=== PATIENT | female | born 1955 | race Caucasian/White ===

== ENCOUNTER 2019-03-25 07:29 | Emergency (ER) | payer BC ==
--- NOTE | 2019-03-25 08:03 | EDM.PDOC ---
ED HPI GENERAL MEDICAL PROBLEM - General Chief Complaint: Upper Extremity Injury/Pain Stated Complaint: SORE FINGER Time Seen by Provider: 03/25/19 07:59 Source of Information: Reports: Patient, RN Notes Reviewed History Limitations: Reports: No Limitations - History of Present Illness INITIAL COMMENTS - FREE TEXT/NARRATIVE: 63-year-old female presents emergency department a complaint of pain in digit # 3 on the right hand she injured herself while working in the kitchen unclear mechanism of action. She has difficulty extending digit #3 she can close her hand with good alignment Right Hand Pain Score (Numeric/FACES): 4 - Related Data Allergies Allergy/AdvReac Type Severity Reaction Status Date / Time droperidol [From Inapsine] AdvReac Tachycardia Verified 03/25/19 07:48 Home Meds: Home Meds Aspirin [Adult Low Dose Aspirin EC] 1 tab PO DAILY 07/30/18 [History] Calcium Carb/Magnesium Oxid/D3 [Calcium Magnesium + D] 1 cap PO DAILY 07/30/18 [ History] Flaxseed Oil [Flaxseed] 1 cap PO DAILY 07/30/18 [History] Sweetwater-3/DHA/Epa/Fish Oil [Sweetwater 3 500 Softgel] 1,000 mg PO DAILY 07/30/18 [ History] atorvaSTATin [Lipitor] 1 tab PO DAILY 07/30/18 [History] Melatonin 10 mg PO BEDTIME 07/31/18 [History] Past Medical History Cardiovascular History: Reports: High Cholesterol Respiratory History: Reports: Other (See Below) Other Respiratory History: mild obstructive 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: - Infectious Disease History Infectious Disease History: Reports: Chicken Pox, Measles - Past Surgical History GI Surgical History: Reports: Appendectomy Female Surgical History: Reports: Cystoscopy Social & Family History - Tobacco Use Smoking Status *Q: Never Smoker - Caffeine Use Caffeine Use: Reports: Coffee - Recreational Drug Use Recreational Drug Use: No Review of Systems - Review of Systems Review Of Systems: See Below Musculoskeletal: Reports: Other (Finger pain) Neurological: Reports: No Symptoms ED EXAM, GENERAL - Physical Exam Exam: See Below Free Text/Narrative:: Examination of the right hand radial pulses +2 she has full range of motion digits 1-4 and 5 digit #3 is limited she cannot fully extend from the PIP joint but she can close her hand without misalignment of the digits sensation is intact Exam Limited By: No Limitations General Appearance: Alert, WD/WN, No Apparent Distress ED TRAUMA EXTREMITY PROCEDURES - Splinting Right 3rd Digit Splint Site: digit 3 Pre-Procedure NV Status: Normal Post-Procedure NV Status: Normal Splint Material: Aluminum-Foam Splint Design: Other Applied & Form Fitted By: Provider Provider Post-Splint Application NV Check: NV Status Normal, Good Position Complications: No Course - Vital Signs Last Recorded V/S: Last Vital Signs Temp 95.9 F L 03/25/19 07:42 Pulse 75 03/25/19 07:42 Resp 13 03/25/19 07:42 BP 138/84 03/25/19 07:42 Pulse Ox 95 03/25/19 07:42 - Orders/Labs/Meds Orders: Active Orders 24 hr Category Date Time Status Fingers Third Digit Rt F7 [CR] Stat Exams 03/25/19 08:01 Taken Departure - Departure Time of Disposition: 08:38 Disposition: Home, Self-Care 01 Condition: Fair 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 Ruiz Sepsis Event Note - Evaluation Sepsis Screening Result: No Definite Risk - Focused Exam Vital Signs: Vital Signs Temp Pulse Resp BP Pulse Ox 03/25/19 07:42 95.9 F L 75 13 138/84 95 03/25/19 07:41 95.9 F L 75 13 138/84 95 Date Exam was Performed: 03/25/19 Time Exam was Performed: 08:37 - My Orders Last 24 Hours: My Active Orders 03/25/19 08:01 Fingers Third Digit Rt F7 [CR] Stat - Assessment/Plan Last 24 Hours: My Active Orders 03/25/19 08:01 Fingers Third Digit Rt F7 [CR] Stat Plan: Assessment Acuity = acute Site and laterality = boutonniere deformity digit #3 right hand Etiology = secondary to trauma Manifestations = inability to fully extend digit #3 Location of injury = Home Lab values = x-ray finger, I did review films myself I cannot appreciate any acute process, the official read from radiology is pending Plan Films are sent to [facility] I did discuss case with Dr. Ruiz orthopedic hand surgeon at [phone] he recommended splinting to protect that PIP joint follow- up in hand clinic next week This note was dictated using [employer] voice recognition software please call with any questions on syntax or grammar.
--- NOTE | 2019-03-25 09:25 | CR ---
Fingers Third Digit Rt F7 CLINICAL HISTORY: Boutonniere deformity FINDINGS: No fracture or dislocation is identified. There is some minimal dorsiflexion at the third DIP joint IMPRESSION: No fracture Slight dorsiflexion at DIP joint may represent some instability. Clinical correlation is necessary
== END 2019-03-25 08:53 | disposition home or self-care (01) ==
LOC: JP.ED 07:29
DX: M20.021 Boutonniere deformity of right finger(s) (principal); E78.00 Pure hypercholesterolemia, unspecified; Z88.8 Allergy status to other drugs, medicaments and biological substances; Z79.899 Other long term (current) drug therapy; Z79.82 Long term (current) use of aspirin
CPT/HCPCS: 73140-26-F7; 73140-F7; 99283-25

== ENCOUNTER 2022-08-16 15:11 | Emergency (ER) | payer BC ==
[2022-08-16] MEDS ORDERED: Sodium Chloride 0.9% 10 ML Syringe FLUSH PRN (15:58)
[2022-08-16 16:04] LABS: BASOPHILS ABSOLUTE AUTO 0.03 K/uL (0.00-0.10); BASOPHILS PERCENT AUTO 0.4 % (0.1-1.3); EOSINOPHILS ABSOLUTE AUTO 0.09 K/uL (0.00-0.40); EOSINOPHILS PERCENT AUTO 1.1 % (0.0-5.4); HEMATOCRIT 41.5 % (34.3-46.0); HEMOGLOBIN 14.2 g/dL (11.2-15.5); IMMATURE GRAN ABSOLUTE AUTO 0.03 K/uL (0.00-0.23); IMMATURE GRAN PERCENT AUTO 0.4 % (0.0-0.7); LYMPHOCYTES ABSOLUTE AUTO 2.29 K/uL (0.8-3.3); LYMPHOCYTES PERCENT AUTO 28.9 % (11.4-47.7); MEAN CORPUSCULAR HEMOGLOBIN 30.9 pg (31.6-35.5); MEAN CORPUSCULAR HGB CONC 34.2 g/dL (31.6-35.5); MEAN CORPUSCULAR VOLUME 90.4 fL (81.4-99.0); MONOCYTES ABSOLUTE AUTO 0.75 K/uL (0.20-0.90); MONOCYTES PERCENT AUTO 9.5 % (3.3-12.6); NEUTROPHILS ABSOLUTE AUTO 4.73 K/uL (1.0-7.6); NEUTROPHILS PERCENT AUTO 59.7 % (40.0-78.1); PLATELET COUNT,PLT 232 K/uL (130-375); RED BLOOD CELL COUNT 4.59 M/uL (3.77-5.24); WHITE BLOOD CELL COUNT,WBC 7.9 K/uL (3.2-11.0)
[2022-08-16 16:34] LABS: ANION GAP 7.8 mmol/L (5.0-14.0); CALCIUM 8.8 mg/dL (8.5-10.1); CREATININE 0.8 mg/dL (0.6-1.0); EST CRCL DRUG DOSING (CG) 61.78 mL/min; MAGNESIUM 2.3 mg/dL (1.8-2.4); POTASSIUM,K 4.4 mmol/L (3.6-5.2); T4 FREE 0.77 ng/dL (0.76-1.46); TROPONIN I HIGH SENSITIVITY 5.2 pg/mL (<=60.3); TSH ULTRASENSITIVE 1.549 uIU/mL (0.358-3.740)
== END 2022-08-16 17:17 | disposition home or self-care (01) ==
LOC: JP.ED 15:11
DX: I49.3 Ventricular premature depolarization (principal); R42 Dizziness and giddiness; R00.2 Palpitations; E78.00 Pure hypercholesterolemia, unspecified; Z79.82 Long term (current) use of aspirin; Z88.8 Allergy status to other drugs, medicaments and biological substances; Z79.899 Other long term (current) drug therapy
CPT/HCPCS: 36415; 80048; 83735; 84439; 84443; 84484; 85025; 93005; 99285